=== PATIENT | male | born 2000 | race Asian ===

== ENCOUNTER → 2024-12-08 | Outpatient (CLI) | payer OTHER | LOC: M CARPUL 07:55 | PROVIDERS: ATTEND Student in an Organized Health Care Education/Training Program | DX: R06.09 Other forms of dyspnea (principal) ==

== ENCOUNTER → 2024-12-21 | Outpatient (CLI) | payer OTHER | LOC: M CARPUL 14:58 | PROVIDERS: ATTEND Student in an Organized Health Care Education/Training Program | DX: R07.89 Other chest pain (principal) ==

== ENCOUNTER 2025-02-17 11:41 | Inpatient (IN) | payer OTHER ==
[~2025-02-17] VITALS: Ht 180.3 cm; Wt 7.8 kg
[2025-02-17] MEDS ORDERED: [UNRECOGNIZED DRUG - REMARK] (12:12)
[2025-02-17 13:10] LABS: BARBITURATES URINE NEGATIVE (NEGATIVE); COCAINE METABOLITE URINE NEGATIVE (NEGATIVE); METHADONE URINE NEGATIVE (NEGATIVE)
[2025-02-17 13:11] LABS: AMPHETAMINES LEVEL URINE NEGATIVE (NEGATIVE); BENZODIAZEPINES URINE NEGATIVE (NEGATIVE); CANNABINOIDS URINE NEGATIVE (NEGATIVE); OPIATES URINE NEGATIVE (NEGATIVE); PHENCYCLIDINE URINE NEGATIVE (NEGATIVE)
[2025-02-17 13:23] LABS: PLATELET COUNT, AUTOMATED 345 10^3/uL (150-450)
[2025-02-17 13:54] LABS: ETHYL ALCOHOL (ETHANOL) < 0.003 % (0.000-0.010)
[2025-02-17 13:56] LABS: SALICYLATE LEVEL < 3.0 MG/DL (<30)
[2025-02-17 13:57] LABS: ALT/SGPT 27 U/L (7.0-40); AST/SGOT 30 U/L (<34); CALCIUM LEVEL 10.1 MG/DL (8.5-10.1); CARBON DIOXIDE LEVEL 28 MMOL/L (20-31); CHLORIDE LEVEL 104 MMOL/L (98-107); CREATININE FOR GFR 0.88 MG/DL (0.70-1.30); GLOMERULAR FILTRATION RATE > 90.0 (>60); POTASSIUM SERUM 4.3 MMOL/L (3.5-5.1); SODIUM LEVEL 142 MMOL/L (136-145)
[2025-02-17] MEDS ORDERED: MAALOX 30 ML SUSP *UDC PO PRN (14:45)
[2025-02-17] MEDS ORDERED: LORazepam 1 MG TAB PO PRN (14:45)
[2025-02-17] MEDS ORDERED: IBUPROFEN 400 MG TAB PO PRN (14:45)
[2025-02-17] MEDS ORDERED: HALOPERIDOL 5 MG TAB PO PRN (14:45)
[2025-02-17] MEDS ORDERED: ACETAMINOPHEN 325 MG TAB PO PRN (14:45)
[2025-02-17] MEDS ORDERED: traZODone 50 MG TAB PO PRN (14:45)
[2025-02-17] MEDS ORDERED: MOM 30 ML SUSPENSION UDC PO PRN (14:45)
[2025-02-17] MEDS ORDERED: OLANZapine 5 MG TAB PO PRN (14:45)
[2025-02-17] MEDS ORDERED: VENTAER INH (15:16)
[2025-02-17] MEDS ORDERED: HOME MED LIST COMPLETE! XX SCH (15:20)
[2025-02-17] MEDS: NICOTINE 14 MG/24 HR TRANSDERMAL TD SCH (15:46)
[2025-02-17 16:10] VITALS: BP 113/65; TEMP 97.5; O2SAT 98
[2025-02-18 06:32] VITALS: BP 111/71; TEMP 98; O2SAT 100
[2025-02-18 11:33] VITALS: BP 111/71; TEMP 98; O2SAT 100
[2025-02-18] MEDS: ESCITALOPRAM OXALATE 5 MG TABLET PO SCH (14:59)
[2025-02-19 06:47] VITALS: BP 109/73; TEMP 97.6; O2SAT 100
[2025-02-19 15:07] VITALS: BP 110/65; TEMP 98.8; O2SAT 98
[2025-02-20 06:54] VITALS: BP 132/60; TEMP 98.2; O2SAT 96
[2025-02-20 15:47] VITALS: BP 115/59; TEMP 98.8; O2SAT 98
[2025-02-21] MEDS ORDERED: TRAZ-252 PO (02:00)
[2025-02-21] MEDS ORDERED: LEXA1TAB PO (02:00)
[2025-02-21] MEDS ORDERED: HYDR-3363 PO (02:00)
[2025-02-21 06:46] VITALS: BP 117/58; TEMP 97.5; O2SAT 99
[2025-02-21 08:03] VITALS: BP 117/58; TEMP 97.5; O2SAT 99
[2025-02-21] MEDS: ESCITALOPRAM OXALATE 10 MG TABLET PO SCH (09:56)
== END 2025-02-21 11:59 | disposition home or self-care (01) | DRG 880 ==
LOC: M ED 11:41 → M ED INP 14:43 → M PSY 15:58
PROVIDERS: ADMIT Internal Medicine; ATTEND Internal Medicine
DX: F41.9 Anxiety disorder, unspecified (principal); R45.851 Suicidal ideations; F43.21 Adjustment disorder with depressed mood; R45.850 Homicidal ideations; Z62.810 Personal history of physical and sexual abuse in childhood; F17.200 Nicotine dependence, unspecified, uncomplicated; Z79.899 Other long term (current) drug therapy; Z88.2 Allergy status to sulfonamides; Z88.8 Allergy status to other drugs, medicaments and biological substances; J45.909 Unspecified asthma, uncomplicated

== ENCOUNTER 2025-04-26 11:17 | Observation (INO) | payer OTHER ==
[~2025-04-26] VITALS: Ht 177.8 cm; Wt 67.3 kg
[~2025-04-26 11:17] MED LIST: HYDR-3363 PO; LEXA1TAB PO; TRAZ-252 PO; VENTAER INH; [UNRECOGNIZED DRUG - REMARK]
[2025-04-26 12:02] LABS: BASO # 0.1 10^3/uL (0.0-0.2); BASO % 0.4 % (0.0-1.0); EOS # 0.0 10^3/uL (0.0-0.5); EOS % 0.1 % (0.0-3.0); LYMPH # 2.2 10^3/uL (1.5-5.0); LYMPH % 19.7 % (24.0-44.0); MONO # 0.6 10^3/uL (0.0-0.8); MONO % 5.5 % (2.0-8.0); NEUTROPHILS # 8.3 10^3/uL (1.5-8.5); NEUTROPHILS % 73.9 % (36.0-66.0); PLATELET COUNT, AUTOMATED 303 10^3/uL (150-450)
[2025-04-26 12:31] LABS: ETHYL ALCOHOL (ETHANOL) < 0.003 % (0.000-0.010)
[2025-04-26 12:32] LABS: ALT/SGPT 19 U/L (7.0-40); AST/SGOT 31 U/L (<34); CALCIUM LEVEL 9.2 MG/DL (8.5-10.1); CARBON DIOXIDE LEVEL 28 MMOL/L (20-31); CHLORIDE LEVEL 104 MMOL/L (98-107); CPK CREATINE PHOSPHOKINASE 810 U/L (46-171); CREATININE FOR GFR 0.97 MG/DL (0.70-1.30); GLOMERULAR FILTRATION RATE > 90.0 (>60); POTASSIUM SERUM 4.0 MMOL/L (3.5-5.1); SALICYLATE LEVEL < 3.0 MG/DL (<30); SODIUM LEVEL 141 MMOL/L (136-145)
[2025-04-26 13:07] LABS: AMPHETAMINES LEVEL URINE NEGATIVE (NEGATIVE); BARBITURATES URINE NEGATIVE (NEGATIVE); BENZODIAZEPINES URINE NEGATIVE (NEGATIVE); CANNABINOIDS URINE NEGATIVE (NEGATIVE); COCAINE METABOLITE URINE NEGATIVE (NEGATIVE); METHADONE URINE NEGATIVE (NEGATIVE); OPIATES URINE NEGATIVE (NEGATIVE); PHENCYCLIDINE URINE NEGATIVE (NEGATIVE)
[2025-04-26] MEDS ORDERED: LEXA1TAB PO (13:15)
[2025-04-26] MEDS ORDERED: HOME MED LIST COMPLETE! XX SCH (13:15)
[2025-04-26] MEDS ORDERED: HYDR-3363 PO (13:15)
[2025-04-26] MEDS ORDERED: TRAZ-252 PO (13:15)
[2025-04-26] MEDS: NS (Normal Saline) 0.9% 1,000 ML IV SCH (13:37)
[2025-04-26 13:58] LABS: CK-MB VALUE MASS 4.6 NG/ML (<3.6); MB/CK RELATIVE INDEX 0.56 (< OR =4)
[2025-04-26] MEDS ORDERED: ALBUTEROL 90 MCG/ACT 8 GM HFA INHALER INH PRN (14:05)
[2025-04-26] MEDS: LR 1,000 ML IV SCH (14:42)
[2025-04-27 01:59] LABS: CPK CREATINE PHOSPHOKINASE 685.0 U/L (46-171)
[2025-04-27 04:13] LABS: PLATELET COUNT, AUTOMATED 232 10^3/uL (150-450)
[2025-04-27] MEDS: LR 1,000 ML IV ONE (04:46)
[2025-04-27 05:05] LABS: ALT/SGPT 14 U/L (7.0-40); AST/SGOT 27 U/L (<34); CALCIUM LEVEL 8.7 MG/DL (8.5-10.1); CARBON DIOXIDE LEVEL 28 MMOL/L (20-31); CHLORIDE LEVEL 108 MMOL/L (98-107); CK-MB VALUE MASS 2.7 NG/ML (<3.6); CPK CREATINE PHOSPHOKINASE 581 U/L (46-171); CREATININE FOR GFR 0.97 MG/DL (0.70-1.30); GLOMERULAR FILTRATION RATE > 90.0 (>60); MB/CK RELATIVE INDEX 0.46 (< OR =4); POTASSIUM SERUM 3.8 MMOL/L (3.5-5.1); SODIUM LEVEL 142 MMOL/L (136-145)
[2025-04-27 10:55] VITALS: BP 101/63; TEMP 97.5; O2SAT 97
== END 2025-04-27 11:08 ==
LOC: M ED 11:17 → INTOOBSV 11:18 → M ED INP 11:18
PROVIDERS: ADMIT Internal Medicine; ATTEND Internal Medicine
DX: T50.912A Poisoning by multiple unspecified drugs, medicaments and biological substances, intentional self-harm, initial encounter (principal); R45.851 Suicidal ideations; M62.82 Rhabdomyolysis; R07.89 Other chest pain; J45.909 Unspecified asthma, uncomplicated; F41.9 Anxiety disorder, unspecified; F32.A Depression, unspecified; Z79.51 Long term (current) use of inhaled steroids; Z79.899 Other long term (current) drug therapy

== ENCOUNTER 2025-04-27 10:10 | Inpatient (IN) | payer OTHER ==
[~2025-04-27] VITALS: Ht 177.8 cm; Wt 66.8 kg
[2025-04-27] MEDS: NICOTINE 14 MG/24 HR TRANSDERMAL TD SCH (09:00)
[2025-04-27] MEDS ORDERED: MAALOX 30 ML SUSP *UDC PO PRN (10:30)
[2025-04-27] MEDS ORDERED: ACETAMINOPHEN 325 MG TAB PO PRN (10:30)
[2025-04-27] MEDS ORDERED: MOM 30 ML SUSPENSION UDC PO PRN (10:30)
[2025-04-27] MEDS ORDERED: HALOPERIDOL 5 MG TAB PO PRN (10:30)
[2025-04-27] MEDS ORDERED: traZODone 50 MG TAB PO PRN (10:30)
[2025-04-27] MEDS ORDERED: LORazepam 1 MG TAB PO PRN (10:30)
[2025-04-27] MEDS ORDERED: OLANZapine 5 MG TAB PO PRN (10:30)
[2025-04-27 11:00] VITALS: BP 110/68; TEMP 97.9; O2SAT 100
[2025-04-28 06:50] VITALS: BP 110/59; TEMP 98.9; O2SAT 100
[2025-04-28] MEDS ORDERED: ALBUTEROL 90 MCG/ACT 8 GM HFA INHALER INH PRN (10:25)
[2025-04-28 16:47] VITALS: BP 116/85; TEMP 97.9; O2SAT 96
[2025-04-29 06:30] VITALS: BP 111/59; TEMP 98; O2SAT 99
== END 2025-04-29 11:11 | disposition home or self-care (01) | DRG 880 ==
LOC: M PSY 11:09
PROVIDERS: ADMIT Internal Medicine; ATTEND Internal Medicine
DX: F41.9 Anxiety disorder, unspecified (principal); F32.A Depression, unspecified; Z91.51 Personal history of suicidal behavior; Z56.4 Discord with boss and workmates; F17.290 Nicotine dependence, other tobacco product, uncomplicated; Z79.899 Other long term (current) drug therapy; Z88.2 Allergy status to sulfonamides; Z88.6 Allergy status to analgesic agent; Z88.8 Allergy status to other drugs, medicaments and biological substances

== ENCOUNTER → 2025-05-30 | Outpatient (CLI) | payer OTHER | LOC: M RAD 06:50 | PROVIDERS: ATTEND Physician Assistant | DX: R06.02 Shortness of breath (principal); Z65.5 Exposure to disaster, war and other hostilities ==